=== PATIENT | female | born 1980 | race Caucasian/White ===

== ENCOUNTER 2017-07-02 10:44 | Emergency (ER) | payer OTHER ==
[2017-07-02] MEDS ORDERED: NS 1,000 ML IV ONE (11:04)
--- NOTE | 2017-07-02 11:17 | EDPHY ---
HPI/HX/ROS/PE/MDM Narrative: CHIEF COMPLAINT: UTI, may need different antibiotics. HPI: The patient is a 36 y/o female arriving with her friend at the recommendation of a nursing line for evaluation of a UTI after the nurse said she was "in shock." A few days ago she developed dysuria and frequency so she saw her PCP yesterday and was treated for a UTI with Macrobid. She believes her urine was sent for culture. She took two doses and then felt worse and was concerned she was reacting poorly to the Macrobid. She called a nurse line to see if she could change antibiotics and was told, "you might be in shock and should go to the ER immediately." She has not taken a dose of Macrobid this morning and says she actually felt improved today. She continues to have some nausea, a headache , and mild lightheadedness. She took ibuprofen this morning for symptoms. She denies abdominal pain, flank pain, vomiting, fever, or other symptoms. She has a history of prior UTIs with pyelonephritis. No history of abdominal surgeries. REVIEW OF SYSTEMS: Aside from elements discussed in the HPI, a comprehensive 10-point review of systems was reviewed and is negative. 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 Friend/family member at bedside. PCP: Family Medicine PHYSICAL EXAM: General:Patient is alert, in no acute distress. ENT:Eyes are normal to inspection. ENT inspection normal. Neck: Normal inspection. Full range of motion. Respiratory:No respiratory distress. Breath sounds normal bilaterally. Cardiovascular: Tachycardic regular rate and rhythm. Strong peripheral pulses. Normal cap refill. Abdomen:The abdomen is nontender to palpation. There are no peritoneal signs. Back: Normal to inspection. No tenderness to palpation. Skin: Normal color. No rash. Warm and dry. Extremities: Normal appearance. Full range of motion. Neuro: Oriented x3. Normal motor function. Normal sensory function. ED Course: This is a healthy 36 y/o female who was recently diagnosed with a UTI and is here at the recommendation of her nurse to possibly change antibiotics. She is well-appearing on exam, but is notably tachycardic around 120. Plan for IV, labs, UA, and IV fluids. 1230: 1gm IV Ceftriaxone administered. Reassessed patient and discussed work up. UA indicates UTI; labs otherwise unremarkable. She is no longer tachycardic. Patient will be discharged with a script for Keflex and referral to PCP for follow up. Return precautions discussed. She is comfortable with this plan. MDM: This patient presents with mild abdominal pain in the setting of UTI for which she has received two doses of macrobid. She felt worse this morning but thinks that was likely secondary to the medication. Given her tachycardia, I expanded the workup to include blood work which shows a mildly elevated WBC, and will treat her with an IV dose of ceftriaxone. We had quite an extended conversation regarding possible etiologies or her symptoms and plan of care. She is very well-appearing, with a benign abdomen and is in no distress. She would like to decline further workup or imaging and would like to switch antibiotics - I will prescribe Keflex. UCx already in progress at PCP office. - Data Points Laboratory Results: Laboratory Results 07/02/17 10:30 07/02/17 10:30 07/02/17 07/02/17 07/02/17 13:00 10:30 10:30 WBC RBC Hgb Hct MCV MCH MCHC RDW Plt Count MPV Neut % (Auto) Lymph % (Auto) [place] % (Auto) Eos % (Auto) Baso % (Auto) Nucleat RBC Rel Count Absolute Neuts (auto) Absolute Lymphs (auto) Absolute Monos (auto) Absolute Eos (auto) Absolute Basos (auto) Absolute Nucleated RBC Immature Gran % Immature Gran # Sodium 141 mEq/L mEq/L (134-144) Potassium 3.7 mEq/L mEq/L (3.5-5.2) Chloride 105 mEq/L mEq/L (97-110) Carbon Dioxide 20 mEq/l L mEq/l (22-31) Anion Gap 16 mEq/L mEq/L (8-16) BUN 16 mg/dL mg/dL (7-23) Creatinine 0.8 mg/dL mg/dL (0.6-1.0) Estimated GFR > 60 Glucose 147 mg/dL H mg/dL (70-100) Calcium 8.9 mg/dL mg/dL (8.5-10.4) Beta HCG, Qual NEGATIVE Urine Color YELLOW Urine Appearance HAZY Urine pH 5.0 (5.0-7.5) Ur Specific [place] 1.018 (1.002-1.030) Urine Protein NEGATIVE (NEGATIVE) Urine Ketones 1+ H (NEGATIVE) Urine Blood 1+ H (NEGATIVE) Urine Nitrate NEGATIVE (NEGATIVE) Urine Bilirubin NEGATIVE (NEGATIVE) Urine Urobilinogen NEGATIVE EU EU (0.2-1.0) Ur Leukocyte Esterase NEGATIVE (NEGATIVE) Urine RBC 1-3 /hpf /hpf (0-3) Urine WBC 1-3 /hpf /hpf (0-3) Ur Epithelial Cells TRACE /lpf /lpf (NONE-1+) Urine Mucus 2+ /lpf H /lpf (NONE-1+) Urine Glucose NEGATIVE (NEGATIVE) 07/02/17 10:30 WBC 11.28 10^3/uL H 10^3/uL (3.80-9.50) RBC 4.66 10^6/uL 10^6/uL (4.18-5.33) Hgb 14.7 g/dL g/dL (12.6-16.3) Hct 42.6 % % (38.0-47.0) MCV 91.4 fL fL (81.5-99.8) MCH 31.5 pg pg (27.9-34.1) MCHC 34.5 g/dL g/dL (32.4-36.7) RDW 11.9 % % (11.5-15.2) Plt Count 166 10^3/uL 10^3/uL (150-400) MPV 10.0 fL fL (8.7-11.7) Neut % (Auto) 94.7 % H % (39.3-74.2) Lymph % (Auto) 2.7 % L % (15.0-45.0) [place] % (Auto) 2.0 % L % (4.5-13.0) Eos % (Auto) 0.1 % L % (0.6-7.6) Baso % (Auto) 0.1 % L % (0.3-1.7) Nucleat RBC Rel Count 0.0 % % (0.0-0.2) Absolute Neuts (auto) 10.69 10^3/uL H 10^3/uL (1.70-6.50) Absolute Lymphs (auto) 0.30 10^3/uL L 10^3/uL (1.00-3.00) Absolute Monos (auto) 0.23 10^3/uL L 10^3/uL (0.30-0.80) Absolute Eos (auto) 0.01 10^3/uL L 10^3/uL (0.03-0.40) Absolute Basos (auto) 0.01 10^3/uL L 10^3/uL (0.02-0.10) Absolute Nucleated RBC 0.00 10^3/uL 10^3/uL (0-0.01) Immature Gran % 0.4 % % (0.0-1.1) Immature Gran # 0.04 10^3/uL 10^3/uL (0.00-0.10) Sodium Potassium Chloride Carbon Dioxide Anion Gap BUN Creatinine Estimated GFR Glucose Calcium Beta HCG, Qual Urine Color Urine Appearance Urine pH Ur Specific [place] Urine Protein Urine Ketones Urine Blood Urine Nitrate Urine Bilirubin Urine Urobilinogen Ur Leukocyte Esterase Urine RBC Urine WBC Ur Epithelial Cells Urine Mucus Urine Glucose Medications Given: Discontinued Medications Sodium Chloride (Ns) 1,000 mls @ 0 mls/hr IV EDNOW ONE; Wide Open PRN Reason: Protocol Stop: 07/02/17 11:05 Last Admin: 07/02/17 11:20 Dose: 1,000 mls Ceftriaxone Sodium/Dextrose (Rocephin 1 Gm (Premix)) 50 mls @ 100 mls/hr IV EDNOW ONE PRN Reason: Protocol Stop: 07/02/17 13:00 Last Admin: 07/02/17 12:54 Dose: 50 mls General Time Seen by Provider: 07/02/17 11:03 Initial Vital Signs: Initial Vital Signs Temperature (C) 36.7 C 07/02/17 10:56 Heart Rate 120 H 07/02/17 10:56 Respiratory Rate 16 07/02/17 10:56 Blood Pressure 101/51 L 07/02/17 10:56 O2 Sat (%) 94 07/02/17 10:56 O2 Delivery Mode Room Air Allergies/Adverse Reactions: No Known Allergies Allergy (Unverified 04/05/11 14:01) Home Medications: Medication Instructions Recorded Ibuprofen [Motrin (*)] 600 mg PO Q6 PRN #30 tab 06/02/16 Iron Polysacch/Iron Heme Polyp 28 mg PO BID #30 tab 06/02/16 [Bifera] Cephalexin [Keflex] 500 mg PO TID #21 cap 07/02/17 Departure - Departure Disposition: Home, Routine, Self-Care Clinical Impression: UTI (urinary tract infection) Condition: Good Instructions: Cephalexin (By mouth), Urinary Tract Infection in Women (ED) Additional Instructions: 1. Take Keflex as prescribed. Be sure to complete the entire prescription. 2. Use Tylenol and ibuprofen as directed on the packaging as needed for pain over the next few days. 3. Follow up with your primary care provider for unimproved symptoms over the next 3-4 days. 4. Return to the ED for severe pain, uncontrollable fever, flank pain, inability to urinate, or other worsening of condition. Your doctor's email is [email or web address] - feel free to email me with any questions! Referrals: Jacqueline Ortiz MD [Primary Care Provider] - As per Instructions Prescriptions: Cephalexin [Keflex] 500 mg PO TID #21 cap Report Scribed for: Kendrick Narayanan Report Scribed by: Tiffany Maharaj Date of Report: 07/02/17 Time of Report: 11:17 Physician Review and Approval Statement: Portions of this note were transcribed by an ED scribe. I personally performed the history, physical exam, and medical decision making; and confirm the accuracy of the information in the transcribed note.
[2017-07-02 11:33] LABS: % IMMATURE GRANULYOCYTES 0.4 % (0.0-1.1); ABSOLUTE IMMATURE GRANULOCYTES 0.04 10^3/uL (0.00-0.10); ADD DIFF? NO; ADD MORPH? NO; ADD SCAN? NO; ATYPICAL LYMPHOCYTE FLAG 10 (0-99); FRAGMENT RBC FLAG 0 (0-99); HEMATOCRIT 42.6 % (38.0-47.0); HEMOGLOBIN 14.7 g/dL (12.6-16.3); LEFT SHIFT FLG 20 (0-99); LIPEMIA HEMOLYSIS FLAG 90 (0-99); MEAN CELL HEMOGLOBIN 31.5 pg (27.9-34.1); MEAN CELL HEMOGLOBIN CONCENTR. 34.5 g/dL (32.4-36.7); MEAN CELL VOLUME 91.4 fL (81.5-99.8); PLATELET CLUMPS FLAG 0 (0-99); PLATELET COUNT 166 10^3/uL (150-400); RED BLOOD CELL COUNT 4.66 10^6/uL (4.18-5.33); RED CELL DISTRIBUTION WIDTH 11.9 % (11.5-15.2)
[2017-07-02 11:53] LABS: POTASSIUM 3.7 mEq/L (3.5-5.2); SODIUM 141 mEq/L (134-144)
[2017-07-02 11:54] LABS: ANION GAP 16 mEq/L (8-16); CALCIUM 8.9 mg/dL (8.5-10.4); CARBON DIOXIDE 20 mEq/l (22-31); CHLORIDE 105 mEq/L (97-110); CREATININE 0.8 mg/dL (0.6-1.0); GLOMERULAR FILTRATION RATE > 60; GLUCOSE 147 mg/dL (70-100)
[2017-07-02 13:06] LABS: COLOR YELLOW; LEUKOCYTE ESTERASE,URINE NEGATIVE (NEGATIVE); NITRITE,URINE NEGATIVE (NEGATIVE)
[2017-07-02 13:25] LABS: MUCUS 2+ /lpf (NONE-1+)
[2017-07-02 14:29] VITALS: BP 106/70; PULSE 91; RESP 16; TEMP 98.2; O2SAT 98
== END 2017-07-02 14:29 | disposition home or self-care (01) ==
PROC: 3E0337Z Introduction of Electrolytic and Water Balance Substance into Peripheral Vein, Percutaneous Approach (ICD-10-PCS; principal; 2017-07-02)
DX: N39.0 Urinary tract infection, site not specified (principal); E86.9 Volume depletion, unspecified
CPT/HCPCS: 96365; J0696